=== PATIENT | female | born 1980 | race Hispanic/Latino ===

== ENCOUNTER 2019-09-27 10:46 | Emergency (ER) | payer OTHER, SELFPAY ==
--- NOTE | 2019-09-27 10:54 | ED.UPPEXIN ---
HPI - Extremity Injury (Upper) General Chief Complaint: Extremity Injury, Upper Stated Complaint: Shoulder Pain Time Seen by Provider: 09/27/19 10:54 Source: patient and RN notes reviewed History of Present Illness HPI narrative: Patient is a 39-year-old female that presents the urgent care with complaints of left shoulder pain radiating to the left neck. Patient states that she is certain is from repetitive motion and lifting while working at all days. Patient states that started 2 weeks ago and she did see her PCP last Thursday. Patient states that she wrote the prescription wrong for her pain medication, muscle relaxer and inflammatory medication and therefore she was unable to fill the medication. Patient states that she has been calling their office since her visit last week and they have not sent new prescriptions and per her medication. Patient states she is also waiting on a preauthorization for an MRI from her PCP/insurance. Patient is tearful. States that the pain only exacerbates with the repetitive motion but she feels that she is tense causing more pain. No other acute complaints. No acute distress noted. Patient read the plan of care. Related Data Home Medications Medication Instructions Recorded Confirmed omeprazole 20 mg DAILY 09/27/19 09/27/19 Allergies Allergy/AdvReac Type Severity Reaction Status Date / Time No Known Allergies Allergy Verified 09/27/19 11:02 Review of Systems Review of Systems: Narrative: CONSTITUTIONAL: Denies fever, chills, or sweats. EYES: Denies visual changes, redness, or discharge. ENT: Denies rhinorrhea, congestion, sore throat, or otalgia. CARDIOVASCULAR: Denies chest pain, palpitations, or edema. RESPIRATORY: Denies cough or dyspnea. GASTROINTESTINAL: Denies abdominal pain, nausea, vomiting, or diarrhea. GENITOURINARY: Denies dysuria or hematuria. SKIN: Denies rash or itching. MUSCULOSKELETAL: Reports of left shoulder pain radiating to the neck NEUROLOGIC: Denies headache, numbness, or weakness. All other systems reviewed are negative, except as documented in HPI. PMFSH Comments At the time of my signature, I reviewed and agree with the nursing past medical, surgical, social, and family history. There is no relevant family history pertinent to the patient complaint. Exam Narrative: Exam Narrative: GENERAL: This is a well-nourished, well-developed patient, in no apparent distress. HEAD: normocephalic, atraumatic. EYES: PERRL. Sclera clear/white. Vision is grossly intact. EARS: External ears normal, auditory canals clear and without drainage NOSE: External nose normal with no obvious nasal discharge, nares without redness, no rhinorrhea. THROAT: Mucous membranes moist, posterior pharynx clear. NECK: Neck supple, non-tender; no cervical spine tenderness, range of motion within normal limits CARDIOVASCULAR: Regular rate and rhythm SKIN: warm, intact with no suspicious lesions or rash, good texture and turgor. NEURO: awake, alert, and oriented to person, place and time. There were no obvious focal neurologic abnormalities. EXTREMITIES: No clubbing, cyanosis, or edema. No obvious deformity or dislocation noted to the left shoulder. No obvious scapular snapping syndrome or impingement noted with range of motion. No anterior or posterior joint tenderness to the left shoulder. Range of motion within normal limits with mild discomfort with reaching. Course Vital Signs Vital signs: Vital Signs Temperature 99.3 F 09/27/19 10:58 Pulse Rate 77 09/27/19 10:58 Respiratory Rate 16 09/27/19 10:58 Blood Pressure 128/69 09/27/19 10:58 Pulse Oximetry 100 09/27/19 10:58 Temperature 99.3 F 09/27/19 10:58 Pulse Rate 77 09/27/19 10:58 Respiratory Rate 16 09/27/19 10:58 Blood Pressure 128/69 09/27/19 10:58 Pulse Oximetry 100 09/27/19 10:58 Reviewed MDM - Extremity Injury (Upper) MDM Narrative Medical decision making narrative: Advised the patien
[2019-09-27 10:58] VITALS: BP 128/69; PULSE 77; RESP 16; TEMP 37.4; O2SAT 100
== END 2019-09-27 11:22 | disposition home or self-care (01) ==
PROVIDERS: Emergency Provider Nurse Practitioner Family
DX: S46.912A Strain of unspecified muscle, fascia and tendon at shoulder and upper arm level, left arm, initial encounter (principal); X50.3XXA Overexertion from repetitive movements, initial encounter; K21.9 Gastro-esophageal reflux disease without esophagitis
CPT/HCPCS: 99213; G0463

== ENCOUNTER 2020-10-23 15:47 | Outpatient (CLI) | payer OTHER, SELFPAY | END 2020-10-23 15:48 | disposition home or self-care (01) | LOC: ANHCOVIDVC 15:47 | PROVIDERS: PCP Internal Medicine | DX: Z23 Encounter for immunization (principal) | CPT/HCPCS: 0001A; 91300 ==

== ENCOUNTER 2020-11-14 15:47 | Outpatient (CLI) | payer OTHER, SELFPAY | END 2020-11-14 15:48 | disposition home or self-care (01) | LOC: ANHCOVIDVC 15:47 | PROVIDERS: PCP Internal Medicine | DX: Z23 Encounter for immunization (principal) | CPT/HCPCS: 0002A; 91300 ==